=== PATIENT | female | born 1980 | race Caucasian/White ===

== ENCOUNTER 2017-03-18 17:20 | Emergency (ER) | payer BC ==
--- NOTE | ~2017-03-18 | CR170 ---
[facility]. [facility] A Service of [facility] & [facility] RADIOLOGY TEXT RESULTS PATIENT: CARLOS AMARAL LOCATION: SED : 80 UNIT #: [id number] AGE: [address]: Cristin Rush SEX: F ORDER DR: [id number] [place] [id number] MR#: [id number] Acc #: [id number] NAME: CARLOS AMARAL : 1980 SEX: F STUDY DATE/TIME: 03/18/2017 16:54 UNIT: SED ROOM: STUDY DESCRIPTION: CR Knee 2 Views Rt Attending Physician: Cristin Rush Pa-C Ordering Physician: Montrell Fuentes M.D. Primary Care Physician: David Gomez M.D. MEDICAL IMAGING REPORT This report is preliminary unless electronic signature is present. EXAM Right knee, 2 views, 03/18/2017 HISTORY Right knee pain and swelling medially for 5 weeks, status post fall 5 weeks ago. FINDINGS AP and lateral projection of the knee shows smooth articular anatomy without indication of fracture or dislocation at the major weight-bearing surface of the knee. There is no indication of radiopaque foreign body about the knee surface or joint effusion. IMPRESSION Normal knee. Dictated by... Eric Dougherty M.D. THIS IS AN ELECTRONICALLY VERIFIED REPORT Eric Dougherty M.D. at 03/19/2017 9:03 AM TONY/sindi TD: 03/18/2017 21:52 JOB #: [id number] MEDICAL IMAGING REPORT Page 1 of 1
[~2017-03-18 17:20] MED LIST: ALBUTEROL17 GM INH; ALBUTEROL20 ml; ALPRAZOLAM PO; BACTRIM DS TABL1 TA1 PO; BIPOLAR MED; BIRTH CONTROL PILL; LAMICTAL PO; PREDNISONE PO; TRAZODONE PO; ZYRTEC PO
== END 2017-03-18 17:57 | disposition home or self-care (01) ==
LOC: SED 17:20
DX: S83.91XA Sprain of unspecified site of right knee, initial encounter (principal); W18.39XA Other fall on same level, initial encounter; Y93.89 Activity, other specified; Y92.9 Unspecified place or not applicable; Z88.0 Allergy status to penicillin
CPT/HCPCS: 29530; 73560; 99283